=== PATIENT | male | born 1965 | race Caucasian/White ===

== ENCOUNTER 2022-10-13 05:35 | Emergency (ER) | payer OTHER ==
[~2022-10-13] VITALS: Ht 180.3 cm; Wt 85.3 kg
[~2022-10-13 05:35] MED LIST: HYDR-3974 PO; LEVE500T20 PO; PHEN100O3 PO; PHEN60TA11 PO
--- NOTE | 2022-10-13 05:41 | NUR ---
BIBRA39 FROM 7-11 C/O WITNESSED SEIZURE. NONCOMPLIANT WITH KEPPRA. PT A/OX4. TOLERATING R/A WELL WITH NO RESP DISTRESS. SAFETY SEIZURE PROTOCOL IN PLACE.
--- NOTE | 2022-10-13 06:06 | NUR ---
blood sent to lab
--- NOTE | 2022-10-13 06:15 | NUR ---
called lab for pickup
[2022-10-13] MEDS ORDERED: IV NS 0.9% 500 ML BAG IV ONE (07:00)
--- NOTE | 2022-10-13 07:02 | NUR ---
urine sent to lab
--- NOTE | 2022-10-13 07:03 | NUR ---
called lab for pickup
[2022-10-13 07:07] LABS: BASOPHILS % (AUTO) 0.3 % (0.0-2.0); EOSINOPHILS % (AUTO) 2.1 % (0.0-6.0); HEMATOCRIT 50 % (39-51); LYMPHOCYTES # (AUTO) 2.7 K/uL (0.8-4.8); LYMPHOCYTES % (AUTO) 44.7 % (20.0-44.0); MEAN CORPUSCULAR HGB CONC 34 g/dl (31.0-36.0); MEAN CORPUSCULAR VOLUME 91 fL (80-96); MONOCYTES # (AUTO) 0.6 K/uL (0.1-1.30); MONOCYTES % (AUTO) 10.7 % (2.0-12.0); NEUTROPHILS # (AUTO) 2.6 K/uL (1.8-8.9); NEUTROPHILS % (AUTO) 42.2 % (43.0-81.0); PLATELET COUNT (AUTO) 250 K/uL (150-450); RED BLOOD CELL COUNT(AUTO) 5.43 MIL/uL (4.5-6.0); WHITE BLOOD COUNT (AUTO) 6.1 K/uL (4.3-11.0)
--- NOTE | 2022-10-13 07:15 | NUR ---
REPORT GIVEN TO GUS MCCLELLAND FOR PATRICIA
--- NOTE | 2022-10-13 07:15 | NUR ---
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
[2022-10-13 07:27] LABS: CALCIUM, SERUM 9.2 mg/dL (8.5-10.1); CREATININE 0.6 mg/dL (0.6-1.3); POTASSIUM 4.2 mmol/L (3.5-5.1)
[2022-10-13 07:29] LABS: ALBUMIN 4.8 g/dL (3.4-5.0); BILIRUBIN,DIRECT 0.1 mg/dL (0.0-0.2); BILIRUBIN,TOTAL 0.4 mg/dL (0.2-1.0); TOTAL PROTEIN, SERUM 9.5 g/dL (6.4-8.2)
--- NOTE | 2022-10-13 08:00 | NUR ---
TEND EAT WITH NO N/V no active SZ TIENFEST O
[2022-10-13] MEDS ORDERED: LEVE500T20 PO (08:15)
--- NOTE | 2022-10-13 08:45 | NUR ---
Patient discharged to home in stable condition. Written and verbal after care instructions given. Patient verbalizes understanding of instruction. PT gregory for sociale worker to see pt in [place] for referjonelle
[2022-10-13 08:47] VITALS: BP 146/76
--- NOTE | 2022-10-13 08:58 | NUR ---
CALLED [facility] [employer]. NO ANSWER, LEFT VM.
--- NOTE | 2022-10-13 10:00 | NUR ---
[facility] attempted to meet with pt. for discharge planning/ provide resources, however pt. has departed. Liam Gracia.
== END 2022-10-13 08:45 | disposition home or self-care (01) ==
LOC: ER 05:45
DX: G40.909 Epilepsy, unspecified, not intractable, without status epilepticus (principal); F10.229 Alcohol dependence with intoxication, unspecified; Z88.8 Allergy status to other drugs, medicaments and biological substances; Z59.00 Homelessness unspecified; Z79.899 Other long term (current) drug therapy; Y90.7 Blood alcohol level of 200-239 mg/100 ml
CPT/HCPCS: 99284; 96360; 93005; 85025; 80048; 80076; 36415; 85730; 80320; 80307; J7040; G0480

== ENCOUNTER 2022-10-14 00:43 | Emergency (ER) | payer OTHER ==
[~2022-10-14] VITALS: Ht 180.3 cm; Wt 85.3 kg
[2022-10-14 00:48] VITALS: BP 127/61
--- NOTE | 2022-10-14 00:48 | NUR ---
GISSELLE FROM [place] [address] C/O ETOH BS [employer] T[employer] LEAD[employer] . TOLERATING R/A WELL WITH NO RESP DISTRESS. SAFETY MEASURES IN PLACE. VSS.
--- NOTE | 2022-10-14 06:54 | NUR ---
Patient discharged to home in stable condition. Written and verbal after care instructions given. Patient verbalizes understanding of instruction.
== END 2022-10-14 06:55 | disposition home or self-care (01) ==
LOC: ER 00:53
DX: F10.129 Alcohol abuse with intoxication, unspecified (principal); Z88.8 Allergy status to other drugs, medicaments and biological substances; Z59.00 Homelessness unspecified; Z79.899 Other long term (current) drug therapy; Y90.9 Presence of alcohol in blood, level not specified

== ENCOUNTER 2022-10-15 23:11 | Emergency (ER) | payer OTHER ==
[~2022-10-15] VITALS: Ht 182.9 cm; Wt 81.6 kg
--- NOTE | 2022-10-15 23:25 | NUR ---
TO ER BED 14. BIBRA[address] FOR ETOH. BG 158. PT IS ALERT. RR EVEN AND NONLABORED. DENIES DISCOMFORT AT THIS TIME. CONNECTED TO POX AND HEART MONITOR. AWAITING MD JEFFERSON
[2022-10-15] MEDS ORDERED: LEVETIRACETAM (250 MG) 250 MG TABLET PO ONE ×2 (23:27→23:30)
[2022-10-16] MEDS ORDERED: IV NS 0.9% 1,000 ML BAG IV ONE (00:30)
[2022-10-16] MEDS ORDERED: Thiamine 100 MG in IV D5W 50 ML IV SCH (00:30)
[2022-10-16] MEDS ORDERED: LORAZEPAM INJ 2 MG/ML VIAL IVP ONE (00:30)
[2022-10-16] MEDS ORDERED: Thiamine 100 MG/ML VIAL ONE (00:30)
--- NOTE | 2022-10-16 01:47 | NUR ---
PT TRANSPORTED TO RADIOLOGY FOR CT
[2022-10-16 02:07] LABS: BASOPHILS % (AUTO) 0.4 % (0.0-2.0); EOSINOPHILS % (AUTO) 1.2 % (0.0-6.0); HEMATOCRIT 45 % (39-51); HEMOGLOBIN 15.1 g/dL (13.5-17.5); LYMPHOCYTES # (AUTO) 2.9 K/uL (0.8-4.8); LYMPHOCYTES % (AUTO) 39.5 % (20.0-44.0); MEAN CORPUSCULAR HGB CONC 34 g/dl (31.0-36.0); MEAN CORPUSCULAR VOLUME 91 fL (80-96); MONOCYTES # (AUTO) 0.6 K/uL (0.1-1.30); MONOCYTES % (AUTO) 8.9 % (2.0-12.0); NEUTROPHILS # (AUTO) 3.6 K/uL (1.8-8.9); PLATELET COUNT (AUTO) 245 K/uL (150-450); WHITE BLOOD COUNT (AUTO) 7.3 K/uL (4.3-11.0)
[2022-10-16 02:19] LABS: CALCIUM, SERUM 8.6 mg/dL (8.5-10.1); CARBON DIOXIDE 33 mmol/L (21-32); CHLORIDE 112 mmol/L (98-107); CREATININE 0.8 mg/dL (0.6-1.3); GLUCOSE 116 mg/dL (74-106); POTASSIUM 3.7 mmol/L (3.5-5.1); SODIUM SERUM 144 mmol/L (136-145); UREA NITROGEN, BLOOD 14 mg/dL (7-18)
[2022-10-16 02:32] LABS: ALANINE AMINOTRANSFERASE 40 U/L (12-78); ALBUMIN 4.1 g/dL (3.4-5.0); ALCOHOL, BLOOD 267 mg/dL (0-0); ALKALINE PHOSPHATASE 90 U/L (46-116); ASPARTATE AMINOTRANSFERASE 47 U/L (15-37); BILIRUBIN,DIRECT 0.1 mg/dL (0.0-0.2); BILIRUBIN,TOTAL 0.3 mg/dL (0.2-1.0); TOTAL PROTEIN, SERUM 7.9 g/dL (6.4-8.2)
[2022-10-16 03:05] LABS: ACETAMINOPHEN < 10 ug/ml (10-30)
[2022-10-16] MEDS ORDERED: LEVE1000 PO (05:08)
--- NOTE | 2022-10-16 08:32 | NUR ---
PT AWAKE AND VERBALLY RESPONSIVE, OK TO GO HOME. PT W/ STEADY GAIT, AMBULATORY. BREAKFAST GIVEN TO PT AND TEREZA. WELL. HOMELESS RESOURCES ACCEPTED BY PT. TAP CARD PROVIDED. DISCHARGED IN STABLE CONDITION.
[2022-10-16 08:34] VITALS: BP 112/62
== END 2022-10-16 08:34 | disposition home or self-care (01) ==
LOC: ER 23:19
DX: F10.129 Alcohol abuse with intoxication, unspecified (principal); R41.82 Altered mental status, unspecified; Z88.8 Allergy status to other drugs, medicaments and biological substances; Z59.00 Homelessness unspecified; Z79.899 Other long term (current) drug therapy; Y90.8 Blood alcohol level of 240 mg/100 ml or more
CPT/HCPCS: 36415; 70450-TC; 80048-TC; 80076-TC; 85025-TC; G0480; J3411; J7030; J7060

== ENCOUNTER 2022-10-16 17:45 | Emergency (ER) | payer OTHER ==
[~2022-10-16] VITALS: Ht 172.7 cm; Wt 76.2 kg
[~2022-10-16 17:45] MED LIST changes: +LEVE1000 PO
--- NOTE | 2022-10-16 18:17 | NUR ---
B MADE MD AWARE
--- NOTE | 2022-10-16 19:17 | NUR ---
BIBS, C/O ETOH, SEEN ON THE FLR W SEIZURE-LIKE MOVEMENT IN WAITING ROOM. PT AWAKE AND ALERT BREATHING UNLABORED. ON MONITOR V/S WNL.
--- NOTE | 2022-10-16 20:45 | NUR ---
Patient discharged to home in stable condition. Written and verbal after care instructions given. Patient verbalizes understanding of instruction.
[2022-10-16 21:00] VITALS: BP 148/87
== END 2022-10-16 21:01 | disposition home or self-care (01) ==
LOC: ER 17:48
DX: F10.129 Alcohol abuse with intoxication, unspecified (principal); Z88.8 Allergy status to other drugs, medicaments and biological substances; Z59.00 Homelessness unspecified; Z79.899 Other long term (current) drug therapy; Y90.9 Presence of alcohol in blood, level not specified
CPT/HCPCS: 82962-TC

== ENCOUNTER 2022-10-20 00:22 | Emergency (ER) | payer OTHER ==
[~2022-10-20] VITALS: Ht 182.9 cm; Wt 83.9 kg
[2022-10-20 00:54] VITALS: BP 150/88
[2022-10-20] MEDS ORDERED: LEVETIRACETAM (250 MG) 250 MG TABLET PO ONE ×2 (01:00→01:23)
--- NOTE | 2022-10-20 01:11 | NUR ---
COMMERCIAL PRODUCER AT PT'S BEDSIDE
[2022-10-20 02:55] LABS: BASOPHILS % (AUTO) 0.4 % (0.0-2.0); EOSINOPHILS % (AUTO) 1.8 % (0.0-6.0); HEMATOCRIT 42 % (39-51); HEMOGLOBIN 14.3 g/dL (13.5-17.5); LYMPHOCYTES # (AUTO) 1.8 K/uL (0.8-4.8); LYMPHOCYTES % (AUTO) 39.1 % (20.0-44.0); MEAN CORPUSCULAR HGB CONC 34 g/dl (31.0-36.0); MEAN CORPUSCULAR VOLUME 92 fL (80-96); MONOCYTES # (AUTO) 0.4 K/uL (0.1-1.30); MONOCYTES % (AUTO) 9.2 % (2.0-12.0); NEUTROPHILS # (AUTO) 2.3 K/uL (1.8-8.9); NEUTROPHILS % (AUTO) 49.5 % (43.0-81.0); PLATELET COUNT (AUTO) 143 K/uL (150-450); RED BLOOD CELL COUNT(AUTO) 4.56 MIL/uL (4.5-6.0); WHITE BLOOD COUNT (AUTO) 4.7 K/uL (4.3-11.0)
[2022-10-20 03:30] LABS: CALCIUM, SERUM 8.4 mg/dL (8.5-10.1); CREATININE 0.8 mg/dL (0.6-1.3); POTASSIUM 3.8 mmol/L (3.5-5.1)
[2022-10-20 03:34] LABS: ALBUMIN 3.4 g/dL (3.4-5.0); BILIRUBIN,DIRECT 0.1 mg/dL (0.0-0.2); BILIRUBIN,TOTAL 0.3 mg/dL (0.2-1.0); TOTAL PROTEIN, SERUM 6.8 g/dL (6.4-8.2)
--- NOTE | 2022-10-20 03:53 | NUR ---
Patient discharged to home in stable condition. Written and verbal after care instructions given. Patient verbalizes understanding of instruction.
== END 2022-10-20 03:59 | disposition home or self-care (01) ==
LOC: ER 00:23
DX: G40.909 Epilepsy, unspecified, not intractable, without status epilepticus (principal); F10.229 Alcohol dependence with intoxication, unspecified; F17.200 Nicotine dependence, unspecified, uncomplicated; Z91.14 Patient's other noncompliance with medication regimen; Z60.2 Problems related to living alone; Z79.899 Other long term (current) drug therapy; Y90.6 Blood alcohol level of 120-199 mg/100 ml
CPT/HCPCS: 36415; 80048-TC; 80076-TC; 85025-TC; 85730-TC; G0480